=== PATIENT | female | born 1970 ===

== ENCOUNTER 2017-10-04 02:11 | Emergency (ER) | payer BC ==
[~2017-10-04] VITALS: Ht 157.5 cm; Wt 61.7 kg
[2017-10-04] MEDS ORDERED: ZOLPIDEM TARTRA10 MG PO (02:53)
[2017-10-04] MEDS ORDERED: FLUOXETINE HCL20 M1 PO (02:54)
== END 2017-10-04 05:16 | disposition home or self-care (01) ==
LOC: ED 02:11
DX: F41.9 Anxiety disorder, unspecified (principal); Z79.899 Other long term (current) drug therapy
CPT/HCPCS: 96372; 99282; J2060